=== PATIENT | female | born 1990 | race Caucasian/White ===

== ENCOUNTER → 2019-11-17 11:42 | Outpatient (CLI) | payer OTHER, SELFPAY ==
[2019-11-17 13:55] LABS: Hematocrit 37.4 % (36-46); Hemoglobin 12.7 g/dL (12.0-16.0)
[2019-11-17 14:11] LABS: GTT (PREG) 1 Hour PP 50gm Dose 92 mg/dL (76-139)
== END ==
PROVIDERS: PCP Registered Nurse Diabetes Educator; Referring Provider Obstetrics & Gynecology; Visit Provider Obstetrics & Gynecology
DX: Z34.82 Encounter for supervision of other normal pregnancy, second trimester (principal); Z3A.26 26 weeks gestation of pregnancy
CPT/HCPCS: 36415; 82950; 85014; 85018

== ENCOUNTER → 2020-01-16 13:38 | Outpatient (CLI) | payer OTHER, SELFPAY ==
[2020-01-17 09:10] LABS: Strep Grp B PCR NEG for Grp B Strep
== END ==
PROVIDERS: PCP Registered Nurse Diabetes Educator; Visit Provider Obstetrics & Gynecology
DX: Z34.83 Encounter for supervision of other normal pregnancy, third trimester (principal); Z3A.36 36 weeks gestation of pregnancy
CPT/HCPCS: 87653

== ENCOUNTER → 2020-02-05 08:50 | Outpatient (CLI) | payer OTHER, SELFPAY ==
[2020-02-05 09:25] LABS: COVID19 -Nasal RAPID Negative (Negative)
== END ==
PROVIDERS: PCP Registered Nurse Diabetes Educator; Visit Provider Obstetrics & Gynecology
DX: Z01.812 Encounter for preprocedural laboratory examination (principal); Z20.828 Contact with and (suspected) exposure to other viral communicable diseases
CPT/HCPCS: 87635

== ENCOUNTER 2020-02-06 07:17 | Inpatient (IN) | payer OTHER, SELFPAY ==
--- NOTE | 2020-02-06 08:01 | P.HPOB_ITS ---
OB HPI Date/Time Date of admission: 02/06/20 Date Patient Seen: 02/06/20 Time Patient Seen: 07:50 History of Present Condition Chief complaint: : 2 Para: 1 Estimated Date of Delivery: 02/12/20 Estimated Gestational Age (weeks): 39 Narrative: Danae Zapien is a 29 year old 001 at 39 weeks 1 day presenting for elective induction of labor with a favorable cervix. Patient reports ongoing bouts of contractions, as frequently as last night, but no loss of fluid, vaginal bleeding, or decreased movement. No other complaints obstetrical or otherwise. has been otherwise uncomplicated the with third-trimester transfer of care from the [employer]. Patient has history of uncomplicated vaginal delivery, proven to 8 lb. No contributory medical, surgical, family, social history. Indications Indication for induction OB: other (Impending partner deployment) History of Present care: good care, initiated at week # (8) and number of visits (15) Dating criteria: based on 1st trimester US only Ultrasounds: normal 1st trimester US and normal mid trimester US Obstetrical complications: none Medical complications: none Preadmission Labs Blood type: O (+) positive -: Antibody screen: negative, GBS status: negative, HBsAG: negative, HIV: negative and RPR/VDLR: negative -: Chlamydia screen: not detected and Gonorrhea screen: not detected -: Rubella: immune PAP: Normal (07/19/19) Integrated screen: Within normal limits Urine: Positive for Enterococcus, treated 1 hr GTT: 92 Prior (ies) History: G1: 03/12/17, , 41 weeks, 8#, M Evaluation Evaluation Baseline heart rate: 145 Variability: Moderate (11-25) monitor accelerations: Present monitor decelerations: Absent Contraction Frequency (minutes): 5 Category of Tracing: Reactive Status: Category l Cervical dilation (cm): 2 Cervical effacement (%): 75 station: -1 [facility] Medical History Bacteremia (~08/2019) Chronic hip pain (~2015) Ovarian cyst (~2015) (spontaneous vaginal delivery) UTI (urinary tract infection) Surgical History Hx of tonsillectomy (~08/2015) Family History Mother Benign tumor of spinal cord History of hysterectomy Father PTSD (post-traumatic stress disorder) Hypertension Prediabetes Grandfather Depression Hypertension Hyperlipidemia Non-small cell lung cancer Heavy smoker Status post cardiac surgery Diabetes mellitus Grandmother No known health problems Skin cancer Grandfather Family estrangement MVA (motor vehicle accident) Grandmother Family estrangement Family/Other Melanoma Family/Other Breast cancer Social History marital status: number of children: 1 household members: spouse and children lives independently: Yes pets and animals: Yes (X2 dogs) education level: college ([employer] : [employer]) current occupational exposures/hazards: Yes Previous occupational history: MA special shantanu needs: No Smoking Status: Never smoker second hand exposure: No alcohol intake: former (pre- : 1-2/week maybe) substance use type: does not use Meds Home Medications and Allergies Home Medications Medication Instructions Recorded Confirmed Type prenat.vits,sandro,[id number] 1 tab PO DAILY 10/19/19 12/12/19 History omeprazole 20 mg capsule,delayed 20 mg PO DAILY #30 cap 12/22/19 Rx release Allergies Allergy/AdvReac Type Severity Reaction Status Date / Time No Known Drug Allergies Allergy Verified 12/12/19 17:13 Review of Systems Constitutional Constitutional: Reports system reviewed and no additional complaints, except as documented Cardiovascular Cardiovascular: Reports system reviewed and no additional complaints, except as documented Respiratory Respiratory: Reports system reviewed and no additional complaints, except as documented Gastrointestinal Gastrointestinal: Reports system reviewed and no additional complaints, except as documented Genitourinary Genitourinary: Reports system reviewed and no additional complaints, except as documented Neurologic Neurologic: Reports system reviewed and no additional complaints, except as documented Exam Vital Signs (past 8 hours): 108/68, HR 77 Resp Effort & Inspection: normal respiratory effort Auscultation: clear to auscultation bilaterally Cardio Rate: regular rate Rhythm: regular rhythm GI Palpation: soft and No tender Neuro General: patient alert, patient awake, patient oriented x3 and CN's II-XI intact bilaterally Extrem General: normal to inspection Assessment and Plan Assessment and Plan Assessment and Plan narrative: This patient is admitted for an elective induction of labor in the setting of a favorable cervix and deployment of her in 13 days. The patient will be started on Pitocin, with a room when feasible. Anticipate vaginal delivery. - CBC, T&S - cEFM, toco
[2020-02-06 08:26] LABS: Add Manual Diff / Slide Review NO; Basophils Absolute Auto 0 /uL (0-100); Basophils Percent Auto 0.4 % (0-2); Eosinophils Absolute Auto 100 /uL (0-450); Eosinophils Percent Auto 0.7 % (2-4); Hematocrit 32.9 % (36-46); Hemoglobin 11.1 g/dL (12.0-16.0); Lymphocytes Absolute Auto 2300 /uL (1100-4500); Mean Corpuscular HGB Conc 33.6 % (30-36); Mean Corpuscular Hemoglobin 29.5 PG (26-34); Mean Corpuscular Volume 87.7 fL (80-100); Monocytes Absolute Auto 600 /uL (0-900); Monocytes Percent Auto 6.6 % (3-14); Neutrophils Absolute Auto 5800 /uL (1500-7000); Neutrophils Percent Auto 66.3 % (50-75); Platelet Count 273 X10^3/uL (150-400); Red Blood Cell Count 3.75 X10^6/uL (4.0-5.2); Red Cell Distribution Width 12.8 % (11.6-14.8); White Blood Cell Count 8.7 X10^3/uL (4.5-11.0)
[2020-02-06] MEDS: LACTATED RINGERS 1,000 ML 100 ML IV (08:33)
[2020-02-06] MEDS: OXYTOCIN PREMIX 30 UNIT/500 ML PLAST..BAG IV (08:44)
--- NOTE | 2020-02-06 10:08 | PM.OBPNLAB ---
Date/Time Date Patient Seen: 02/06/20 Time Patient Seen: 10:08 Pain Control Pain control: tolerating well Pelvic Exam Dilation (cm): 3 Effacement (%): 80 station: 0 Amniotic membrane status: Ruptured (AROM for clear fluid) Contractions Pitocin rate (mU/min): 2 Contraction frequency (min): 2 Contraction pattern: Regular Contraction intensity: Strong/Firm Status status: Category l Heart Rate Baseline: 145 Monitor Accelerations: Present (+scalp stim) Monitor Decelerations: Absent Monitor Variability: Moderate Assessment and Plan Assessment: induction ongoing Plan: continuous present management
[2020-02-06 12:00] VITALS: BP 108/68
--- NOTE | 2020-02-06 16:31 | PM.OBPRVD ---
Labor & Delivery Delivery date: 02/06/20 Intrapartal events: Acceleration and Deceleration Cervical ripening method: none Induction method: AROM Delivery augmentation: pitocin Delivery monitor: external FHT and external uterine Route of delivery: L&D Laceration Description: None Estimated blood loss (mL): 100 Anesthesia Type: Epidural Narrative: This patient is a 29-year-old now para 2 admitted for elective induction of labor with a favorable cervix. She was initially started on 3 milliunits of Pitocin, but had tachy systole and the Pitocin was turned off. After AROM, the patient progressed through labor without complication for further augmentation. She progressed to fully dilated and after 15 minutes 2nd stage, was delivered of a healthy baby boy over an intact perineum. There was no nuchal cord, and the shoulders delivered with ease. Apgars were 8 and 9, weight 7#5.8. The placenta delivered spontaneously and intact with a 3 vessel cord shortly thereafter. There were no perineal, labial, or vaginal lacerations, and the immediate course was uncomplicated. Baby 1: gender: Male Presentation: vertex Position: Left Occiput Anterior Placenta delivery description: Spontaneous Cord Vessel Description: 3 Vessels score (1 min): 8 score (5 min): 9 Plan for aftercare: Routine care
[2020-02-06] MEDS: ONDANSETRON 4 MG/2 ML INJ IV (20:02)
[2020-02-06] MEDS: IBUPROFEN 600 MG TABLET PO (21:36)
[2020-02-07] MEDS: ACETAMINOPHEN 325 MG TABLET 650 MG PO (02:39)
[2020-02-07] MEDS: IBUPROFEN 600 MG TABLET PO (07:39)
[2020-02-07] MEDS: PRENATAL VIT,CALC/IRON/FOLIC 1 TABLET 1 TAB PO (07:39)
--- NOTE | 2020-02-07 10:30 | PM.OBDS.1 ---
Discharge Providers Provider Date of admission: 02/06/20 07:17 Discharge Date: 02/07/20 Primary care physician: NEAL Munoz Consults: 02/07/20 16:30 Consult to Industrial Therapist Routine Comment: Discharge provider: Nanda Archer MD Summary Hospital Course Date Patient Seen: 02/07/20 Time Patient Seen: 10:00 Procedures: Hospital Course: This patient was admitted for induction of labor at 39 weeks in the setting of a favorable cervix. She underwent uncomplicated induction and vaginal delivery, had no perineal lacerations, and was discharged on day 1 after an uncomplicated recovery. Peripartum Data Delivery Method: Natural Vaginal Laceration Description: None complications: none 1: Gender: Male Disposition of : home Status at Discharge Cognitive/behavioral status at discharge: oriented Functional status at discharge: independent ambulation Overall status at discharge: patient is progressing back to baseline Time Spent with Patient Time attestation: Total time spent providing and/or coordinating discharge services: Objective Labs Result Diagrams: 02/06/20 08:00 Exam Vital Signs (past 8 hours): 111/61, HR 75, afebrile Narrative Exam Narrative: Patient well-appearing, resting in bed. Good pain control, moderate lochia, ambulating, voiding, passing flatus, no PIH symptoms. Resp Effort & Inspection: normal respiratory effort Auscultation: clear to auscultation bilaterally Cardio Rate: regular rate Rhythm: regular rhythm GI Palpation: soft and No tender Other: Fundus firm, below U Extrem General: normal to inspection Discharge Plan Discharge Plan Patient Disposition: Home Discharge orders & Medications Prescriptions: New ibuprofen 600 mg tablet 600 mg PO Q6H PRN (Reason: pain) Qty: 30 RF: 0 Continued prenat.vits,sandro,[id number] Tablet 1 tab PO DAILY RF: 0 Discontinued omeprazole 20 mg capsule,delayed release(DR/EC) 20 mg PO DAILY Qty: 30 RF: 2 Follow up/Referrals: Nanda Archer MD [Physician] - 6 Weeks ( appointment on at 2PM) Ryder Arevalo ARNP [Primary Care Provider] - Diet/Activity/Treatments Diet: Regular Activity: Nothing in the vagina for 6 weeks. Avoid heavy lifting for 6 weeks. If you have increasing bleeding, pain, fevers, chills, trouble voiding, headaches, visual changes, or any other symptoms, call or come to the Emergency Room. Skin/Wound/Dressing Care Report to your healthcare provider any signs of infection, such as:: chills, fever, night sweats, increased pain, unusual drainage and unusual redness Visit Report/Discharge Packet Instructions: DI for Labor and Delivery, Vaginal Discharge Data Primary Care Provider: Ryder Arevalo
[2020-02-07 12:29] VITALS: BP 128/62; PULSE 92; RESP 16; TEMP 36.9
== END 2020-02-07 13:50 | disposition home or self-care (01) | DRG 807 ==
PROVIDERS: Admitting Provider Obstetrics & Gynecology; PCP Registered Nurse Diabetes Educator; Referring Provider Obstetrics & Gynecology; Visit Provider Obstetrics & Gynecology
DX: O80 Encounter for full-term uncomplicated delivery (principal); Z37.0 Single live birth; Z3A.39 39 weeks gestation of pregnancy; Z01.812 Encounter for preprocedural laboratory examination; Z20.828 Contact with and (suspected) exposure to other viral communicable diseases
CPT/HCPCS: 01967; 36415; 59050; 59410; 85025; 86850; 86900; 86901; 87635; G0379; J2405; J2590